=== PATIENT | female | born 1985 | race Two or more races ===

== ENCOUNTER 2019-11-27 05:58 | Day surgery (SDC) | payer OTHER ==
[~2019-11-27 05:58] MED LIST: FOLIC ACID1 MG; PROMETRIUM200 MG; TENORMIN50 MG; [UNRECOGNIZED DRUG - OTHER]
== END 2019-11-27 12:05 | disposition home or self-care (01) ==
LOC: AMB-ENDOS 05:58
DX: K29.50 Unspecified chronic gastritis without bleeding (principal)